=== PATIENT | male | born 1950 | race Two or more races ===

== ENCOUNTER 2016-05-11 04:21 | Inpatient (IN) | payer MEDICARE ==
[~2016-05-11] VITALS: Ht 177.8 cm; Wt 87.1 kg
--- NOTE | ~2016-05-11 | CATH ---
Cardiac Diagnostic + PCI Report Demographics Patient Name KAITLIN BARRAGAN Gender Male Date of 1950 Age 65 year(s) Patient Number [id number] Date of Study 05/11/2016 Visit Number [id number] Room Number Corporate ID Ht Wt 83.91 kg Accession Number [id number] Referring Primary Physician Physician Jordana Pierson Secondary Physician Physician Clau CRABTREE Diagnostic [facility] Assisting Physician Physician Clau CRABTREE Interventional [facility] Physician Rooter Operator Physician Clau CRABTREE Addendum Added visit number and facility name Findings and Conclusions Diagnostic Findings and Conclusion Inferior/posterior STEMI status post failed thrombolytics. Patient had worsening ST elevation in inferior leads and ongoing chest pain. Diagnostic Recommendations PCI of RCA distal 100% occluded. TA 0 flow. Mild non obstructive disease in LAD and Cx/OM system. Interventional Findings and Conclusion S\E\E\E\P PCI of RCA with [address] elevation on telemetry post PCI. No chest pain at the end of the procedure. Interventional Recommendations DAPT x 1 year. Patient will be observed overnight. Hydration and followup creatinine. Patient has been instructed to not lift anything more than 5 pounds for 1 week. Optimize LV systolic function. Aggressive risk factor management. Aggressive medical therapy for coronary artery disease. Continue aspirin. Statin. Beta Jeremías. Cardiac diet . Optimization of medical therapy as an outpatient. Referral to Cardiac Rehabilitation now and at discharge . Procedure Description Informed consent was obtained in the written and verbal form after the risks and benefits were explained. The patient had no further questions and agreed to proceed. The planned puncture-incision site(s) were shaved and prepped with ChloraPrep and draped in the usual sterile manner. Conscious sedation, supplemental oxygen, and pain control medications were delivered by a registered nurse under physician guidance. Surface ECG rhythm, blood pressure measurement, and pulse oximetry were monitored throughout the procedure. Arterial access. The access site was infiltrated with lidocaine. The vessel was entered with the Seldinger technique. A sheath was advanced into the vessel and used for catheter placement. Selective right coronary angiography. A catheter was advanced into the right coronary vessel ostium under fluoroscopic guidance. Contrast was injected by hand. Images were obtained in multiple projections. Stent Placement: A guiding catheter was used to intubate the vessel. A 0.14 wire was used to cross the lesion. Drug Eluting Stents x 3 were placed. Post placement angiograms were performed. Selective left coronary angiography. A catheter was advanced into the left coronary vessel ostium under Fluoroscopic guidance. Contrast was injected by hand. Images were obtained in multiple projections. Left heart catheterization. A catheter was advanced across the aortic valve to the left ventricle under fluoroscopic guidance. Resting hemodynamics were obtained. Arterial artery hemostasis was achieved. The patient was transferred to a regular nursing floor via cart accompanied by a nurse. The patient left the laboratory in stable condition. Diagnostic Cath Status: Emergency Interventional Cath Status: Emergency Procedure Procedure Type Diagnostic procedure:Angiography:, Coronary Angios w/[facility] PCI procedure:Drug Eluting Coronary Stent:, LAD, RCA Indications: Acute myocardioal infarction of inferoposterior wall. The procedure was explained in detail to the patient. Risks, complications and alternative treatments were reviewed. Written consent was obtained. Medications Reviewed with Patient prior to Procedure. Angiographic Findings Dominance: Right Cardiac Arteries and Lesion Findings LMCA: Lesion on LMCA: Proximal subsection.10% stenosis . LAD: Lesion on Prox LAD: Proximal subsection.10% stenosis . Lesion on Mid LAD: Mid subsection.30% stenosis . Lesion on Dist LAD: Distal subsection.20% stenosis . Lesion on 1st Diag: Proximal subsection.10% stenosis . LCx: Lesion on Prox CX: Proximal subsection.20% stenosis . Lesion on 1st Ob Sarah: Proximal subsection.20% stenosis . RCA: Lesion on Dist RCA: Distal subsection.100% stenosis 36 mm length reduced to 0%. Pre procedure TA 0 flow was noted. Post Procedure TA III flow was present. The guidewire cross was successful.The lesion was diagnosed as a high risk lesion.Culprit lesion. Treatment results:Interventional treatment was successful. Devices used - Emerge Balloon 2.5 x 8. 1 inflation(s) to a max pressure of: 8 tatum. - Runthrough NS .014 x 180. Number of passes: 3. - Promus Premier 3.0 x 20 Stent. 1 inflation(s) to a max pressure of: 12 tatum. - Promus Premier 3.5 x 20 Stent. 2 inflation(s) to a max pressure of: 12 tatum. Lesion on Prox RCA: Proximal subsection.75% stenosis 12 mm length reduced to 0%. Pre procedure TA III flow was noted. Post Procedure TA III flow was present. The guidewire cross was successful.The lesion was diagnosed as a low risk lesion.The lesion was eccentric.Culprit lesion. Comments:Focal Devices used - Promus Premier 4.0 x 12 Stent. 1 inflation(s) to a max pressure of: 12 tatum. Lesion on R PDA: Mid subsection.40% stenosis . Comments:Focal Coronary Tree Procedure Data Procedure Date Date: 05/11/2016Start: 04:52 AMEnd: 06:08 AM Entry Locations - Retrograde Percutaneous access was performed through the Right Radial artery (Primary location). A 6 Fr sheath was inserted. Hemostasis was successfully obtained using Mechanical Compression. Closure Comments: 13 mls in radial band. placed by Sara Acevedo. Procedure Medications Order and Administration + + +--------+ + !Time !Medication !Dosage !Route ! + + +--------+ + 05/11/2016 04:47 AM !Oxygen !2 l/min !NC ! + + +--------+ + 05/11/2016 04:55 AM !Versed !1 mg !I.V. ! + + +--------+ + !05/11/2016 04:59 AM !Heparin (ACC_3) ! ! ! + + +--------+ + !05/11/2016 05:00 AM !Angiomax (Bivalirudin) (ACC_5) !mg !I.V. bolus ! + + +--------+ + !05/11/2016 05:03 AM !Atropine !1 mg !I.V. ! + + +--------+ + !05/11/2016 05:03 AM !Nitroglycerin ! ! ! + + +--------+ + !05/11/2016 05:04 AM !Yordan-Synephrine (Phenylephrine) !100 mcg !I.V. ! + + +--------+ + !05/11/2016 05:11 AM !Fentanyl !50 mcg !I.V. ! + + +--------+ + !05/11/2016 05:23 AM !Nipride !100 mcg !I.C. ! + + +--------+ + !05/11/2016 05:23 AM !Yordan-Synephrine (Phenylephrine) !100 mcg !I.V. ! + + +--------+ + !05/11/2016 04:55 AM !Radial Verapamil !2.5 mg !I.A. ! + + +--------+ + !05/11/2016 05:35 AM !Brilinta (Ticagrelor) (ACC_20) !180 mg !P.O. ! + + +--------+ + !05/11/2016 05:44 AM !0.9% NaCl !100 ml !I.V. drip ! + + +--------+ + Devices Used - A6 Fr. JR4 Guide Catheterwas used for:RCA Intervention. - A5 Fr. BS JL 3.5 Diag. Catheterwas used for:Left coronary angiography.Unable to cannulate the vessel. - A6 Fr. JL 3 JJ Guide Catheterwas used for:Left coronary angiography.Unable to cannulate the vessel. - A6 Fr. EBU 3.5 Guide Catheterwas used for:Left coronary angiography. Contrast Material - Isovue 178171 ml Fluoroscopy Time: Diagnostic: 25:48 minutes. Total: 25:48 minutes. Fluoroscopy Dose: Diagnostic: 2867 mGy. Total: 2867 mGy. Estimated Blood Loss: 20 ml. Additional [facility] PCI Information PCI Indication:Immediate PCI for STEMI. Medical History Performed Procedures and Imaging Results - No [facility] stress or imaging studies were performed. Risk Factors The patient risk factors include:hypertension, last creatinine: 1.1 mg/dl, creatinine clearance: 79.46 ml/min and Current/Recent(w/in 1 year) tobacco use. Admission Data Arrival Date: 05/11/2016 Arrival Time: 12:00 AM Admit Source: Emergency department Insurance Payors: Medicare. Admission Medications + +------+------+ + + + + !Medication !Dosage!Times !Last !Last !Administered !Comments ! ! ! !Per !Delivery !Delivery ! ! ! ! ! !Day !Date !Time ! ! ! + +------+------+ + + + + !SELAM ! ! ! ! !Yes ! ! !Inhibitor ! ! ! ! ! ! ! !(any) ! ! ! ! ! ! ! + +------+------+ + + + + Clinical Evaluation Leading to Procedure - The patient's CAD presentation was assessed as: STEMI. - The patient recevied thrombolytic therapy as an urgent treatment for STEMI on 05/11/2016 02:00 AM. - The patient's anginal syndrome during the past two weeks was assessed as: Class IV according to the [employer] Cardiovascular Society Classification System (CCS). Hemodynamics Condition: Rest O2 Consumption: Heart Rate: 64 bpm Pressures (mmHg) +-----+ + !Site !Pressure ! +-----+ + !AO !121/69 (93) ! +-----+ + !LV !109/11 ,13 ! +-----+ + !LV !110/9 ,11 ! +-----+ + !AO !114/76 (95) ! +-----+ + !LV !112/10 ,11 ! +-----+ + Valve Gradients and Areas + +---------+---------+---------+ +---------+ + !Valve !Peak !Mean !Area !Index !Flow !Source ! + +---------+---------+---------+ +---------+ + !Aortic !0 ! ! ! ! ! ! + +---------+---------+---------+ +---------+ + !Aortic !0 ! ! ! ! ! ! + +---------+---------+---------+ +---------+ + Shunts Oxygen Values O2 Capacity 206.72 O2 Consumption 251.74 Signatures dtt: CLAU PIERSON dtd: 05/11/16 0452 Physician Self Edit
--- NOTE | ~2016-05-11 | DS ---
PATIENT'S NAME: LAUREL MADRIGAL [facility] AGE: 65 Y [address] ROOM: [id number] [place], [place] [id number] LOCATION: [facility] ADMIT DATE: 05/11/2016 Discharge Summary DISCHARGE DATE: 05/13/2016 FAMILY PHYSICIAN: Physician, Unknown ATTENDING PHYSICIAN: Clau Fragoso PRIMARY DISCHARGE DIAGNOSIS: Inferior and posterior ST-elevation myocardial infarction. SECONDARY DIAGNOSES: 1. Tobacco abuse with cessation counseling. 2. Hypertension. 3. Shock liver. 4. Ejection fraction of 50 to 55%. PROCEDURES PERFORMED: Selective coronary angiography and percutaneous intervention with a drug-eluting stent placement x3 to the right coronary artery. HOSPITAL COURSE: This is a 65-year-old male, admitted as an ST-elevation myocardial infarction, after failed thrombolytics at an outside hospital. Please see History and Physical for full details of admission. The patient was emergently taken to the catheterization suite where he underwent a selective coronary angiography and percutaneous intervention with three drug- eluting stents placement to his RCA through his right radial artery without complication. He was subsequently transferred to the intensive care unit for postprocedure monitoring of his vital signs, EKG, and procedure site. Overnight, he had complaints of burning epigastric chest pain which was relieved with a GI cocktail and he was subsequently started on Protonix. On 05/12/2016, the patient's radial site was remaining stable with no signs of complication. He was started on cardiac rehabilitation. Overnight, he had some slight hypotension and bradycardia, so his beta eri was changed and his SELAM inhibitor was discontinued. Due to the hypotension, he was not discharged on an SELAM inhibitor. On 05/13/2016, his cardiac enzymes and liver function tests which had initially elevated postprocedure had started to return to baseline and he was found to be in a stable condition to be discharged to home. LABORATORY DATA AND IMAGING STUDIES: Diagnostics: Cardiac enzyme trend showed an initial set of cardiac enzymes including a CPK, CK-MB, and troponin I of 122, 8.3, and 0.732 respectively. These enzymes peaked with a CPK, CK- MB, and troponin I of 3729, 401.6, and greater than 200 respectively. At the time of discharge, the CPK, CK-MB, and troponin I were 459, 7.4, and 26.5 respectively. Liver function upon admission showed an AST and an ALT of 26 and 33 respectively. These levels peaked at 329 and 79 respectively, and upon PATIENT'S NAME: LAUREL MADRIGAL [facility] AGE: 65 Y [address] ROOM: [id number] [place], [place] [id number] LOCATION: [facility] ADMIT DATE: 05/11/2016 Discharge Summary DISCHARGE DATE: 05/13/2016 FAMILY PHYSICIAN: Physician, Unknown ATTENDING PHYSICIAN: Clau Fragoso discharge, the AST and ALT were 136 and 62 respectively. The patient's GFR remained greater than 60 throughout his hospitalization. Lipid evaluation showed a total cholesterol of 147, triglycerides 126, HDL of 28, and LDL of 94. The patient underwent an echocardiogram on 05/11/2016, which showed a normal left and right ventricular size and systolic function. He had an estimated left ventricular ejection fraction of 50 to 55% and mild concentric left ventricular hypertrophy. There was noted to be moderate hypokinesis of the inferior wall and a grade 1 diastolic dysfunction. The left atrium was mildly dilated, but there were no significant valvular abnormalities and no evidence of pericardial effusion. DISCHARGE ORDERS: 1. The patient was discharged to home with a cardiac diet of low fat, low salt, and low cholesterol. 2. He is to follow normal post-catheterization restrictions including a 10- pound lifting restriction to his right arm. 3. He is to follow up with a hearing therapist of his choosing in [place] within 2 weeks. 4. He is also to undergo outpatient cardiac rehabilitation phase 2, once he establishes his cardiology care. DISCHARGE MEDICATIONS: 1. Aspirin 81 mg p.o. daily. 2. Lipitor 40 mg p.o. daily. 3. Protonix 40 mg p.o. daily. 4. Brilinta 90 mg p.o. twice daily. The patient was given samples of these medications to ensure proper medication compliance during his travels back to [place]. 5. Nitroglycerin 0.4 mg sublingual as needed for chest pain. 6. Metoprolol tartrate 6.25 mg p.o. twice daily. CONDITION ON DISCHARGE: The patient was discharged to home in stable condition. He is given his discharge instructions including diet and activity restrictions, and followup recommendations. These instructions are given to the patient as well as his and they both voice understanding. The patient plans to follow his instructions as prescribed. LUBA DEMARCO APRN FOR MD ALBARO MOHAN/reginaldo PATIENT'S NAME: LAUREL MADRIGAL [facility] AGE: 65 Y [address] ROOM: [place] [address] LOCATION: [facility] ADMIT DATE: 05/11/2016 Discharge Summary DISCHARGE DATE: 05/13/2016 FAMILY PHYSICIAN: Physician, Unknown ATTENDING PHYSICIAN: Clau Fragoso /[id number] d: 05/20/163 t: 05/28/16 1515, DISCHARGE SUMMARY
--- NOTE | ~2016-05-11 | ECHO ---
Transthoracic Echocardiography Report (TTE) Demographics Patient Name LAUREL MADRIGAL Date of Study 05/11/2016 Patient Number [id number] Visit Number [id number] Date of 1950 Room Number G6215 Gender Male Number Age 65 year(s) Referring Richmond Olguin Bb Shot Packer Lorna Putnam RDCS, Physician RVT Physician Interpreting Richmond Olguin [employer] Re[employer] Equipment Operator Physician MD Supervising Ordering Richmond Olguin MD/MLP Physician MD Nurse Stress Case Aide Conclusions Summary Normal LV/RV size and systolic function. The estimated left ventricular ejection fraction is 50 - 55%. Mild concentric left ventricular hypertrophy. There is moderate hypokinesis of the inferior wall. Diastolic assessment reveals Grade I diastolic dysfunction. The left atrium is mildly dilated. No significant valvular abnormalities. No evidence of pericardial effusion. Procedure Type of Study TTE procedure:2D Echocardiogram. Procedure Date Date: 05/11/2016 Start: 07:27 AM Study Location: Inpatient Portable Technical Quality: Adequate visualization Indications:Post PTCA. Appropriate Use Criteria: 9 Patient Status: Routine Rhythm: Within normal limits HR: 69 bpm BP: 146/88 mmHg M-Mode/2D Measurements LV Diastolic Dimension: 4.27 cm LV Systolic Dimension: 2.76 cm LV Septum Diastolic: 1.11 cm LV Septum Systolic: 4.17 cm LV PW Diastolic: 1.08 cm AO Root Dimension: 2.3 cm Cardiac Output: 4.49 l/min AV Cusp Separation: 1.8 cm RV Diastolic Dimension: 2.68 cm LA volume: 31 ml LVOT: 2.4 cm RV Base: 3.04 cm LVOT VTI: 14.4 cm RV Mid: 2.25 cm LV Stroke volume: 65.11 ml TAPSE: 1.59 cm TDI-S': 14 cm/s Doppler Measurements AV Peak Velocity: 1.05 m/s MV Peak E-Wave: 0.53 m/s AV Peak Gradient: 4.41 mmHg MV Peak A-Wave: 0.69 m/s AV Mean Gradient: 2 mmHg MV E/A Ratio: 0.77 LVOT Peak Velocity: 0.77 m/s MV Deceleration Time: 165 msec TR Velocity:2.74 m/s PV Peak Velocity: 0.62 m/s TR Gradient:30.03 mmHg PV Peak Gradient: 1.54 mmHg Estimated RAP:3 mmHg Estimated PASP: 33.03 mmHg Estimated RVSP: 33 mmHg A' Septal Velocity: 0.15 m/s E' Septal Velocity: 0.05 m/s A' Lateral Velocity: 0.13 m/s E' Lateral Velocity: 0.07 m/s MV E/E' Ratio: 8.5 Findings Left Ventricle The estimated left ventricular ejection fraction is 50%. Mild concentric left ventricular hypertrophy. Diastolic assessment reveals Grade I diastolic dysfunction. Right Ventricle Normal right ventricle structure and function. Left Atrium The left atrium is mildly dilated. Right Atrium Normal right atrial size. Mitral Valve Mild mitral regurgitation by color Doppler. Aortic Valve The aortic valve is mildly sclerotic. Tricuspid Valve Mild tricuspid regurgitation by color Doppler. Pulmonic Valve Mild pulmonic valve regurgitation by color Doppler. Pericardial Effusion No evidence of pericardial effusion. Miscellaneous Suboptimal subcostal window to evaluate the IVC and interatrial septum. Pleural Effusion No evidence of pleural effusion. Signature dtt: DESIRAE PIERSON dtd: 05/11/16 0727 Physician Self Edit
--- NOTE | ~2016-05-11 | HP ---
PATIENT'S NAME: LAUREL MADRIGAL [facility] AGE: 65 Y [address] ROOM: [id number] [place], [place] [address] LOCATION: GICU ADMIT DATE: 05/11/2016 History & Physical DISCHARGE DATE: FAMILY PHYSICIAN: PHYSICIAN, UNKNOWN ATTENDING PHYSICIAN: DESIRAE PIERSON DATE OF SERVICE: CHIEF COMPLAINT: Chest pain. REQUESTING PROVIDER: Dr. Yoav Kay from [facility] in [place] requested transfer. HISTORY OF PRESENTING ILLNESS: The patient is a very pleasant 65-year-old, male from [place], [place] who is a cross country truck driver and was visiting [place] yesterday. He spent Thursday05/10/2016 feeling fairly active in town. However, he reported having severe chest discomfort in the mid sternum radiating to his left pectoral region as well as the jaw after midnight on 05/11/2016, it was about 8 to 10 on pain scale and associated with shortness of breath, heart burn, and sweatiness. He contacted EMS and he got oxygen and nitroglycerin x2 as well as morphine 2 mg IV en route to the [facility]. His chest pain decreased to 5/10 once he arrived there. Once he was there, ECG showed significant ST elevation in the inferior leads and ST depressions in the leads V1 and V2 suggestive of inferior posterior involvement as well as significant ST depressions in lead I, aVL, suggestive of a large dominant RCA occlusion. There was no aircrew available to get patient to [facility] and ambulance drive would take about 1 hour and 45 minutes and transfer crew trying to figure out the closest ambulance service that can get the patient from [place] to [facility] in [place]. At this time, it was sure that there would be at least about a [address] time by the time he gets here, given no contraindications to thrombolytics, I did suggest they give him tenecteplase 50 mg IV that was given at 1:55 a.m. When he arrived to the ER, there he got morphine at 1:34 2 mg and about 2:04 he got Lipitor 80 mg as well as heparin drip was started. He was hemodynamically fairly stable, and sinus michele in the 50s. He continued to have persistent chest pain. I was called by the ambulance crew about 20 minutes out from [place] that he continued to have significant chest pain about 6 to 7 on pain scale along with persistent ST elevations on their portable monitor. At that time, we activated the mechanical shop laborer while he was en route and we had him come to the emergency room while the cath crew was getting the equipment ready for patient to get emergent cath, possible PCI of the RCA. In the emergency room, he had chest pain about 6 on pain scale. He was in mild distress. Informed consent was obtained for PATIENT'S NAME: LAUREL MADRIGAL [facility] AGE: 65 Y [address] ROOM: [id number] [place], [place] [address] LOCATION: [facility] ADMIT DATE: 05/11/2016 History & Physical DISCHARGE DATE: FAMILY PHYSICIAN: PHYSICIAN, UNKNOWN ATTENDING PHYSICIAN: DESIRAE PIERSON cardiac cath, given the STEMI, the patient was agreeable. Risks and benefits discussed with patient and he agreed to proceed with plan. Labs reviewed from [place]. His CBC was fairly normal. No significant pathology. Creatinine was 1 here and his INR was 1, troponin was 0.4, CK-MB 4.19, creatine kinase was 106. The patient did not have any fever, chills, stroke-like symptoms. No cough or sputum production. No other acute complaints. He has been in his usual state of health. REVIEW OF SYSTEMS: A 10-point review of systems discussed with patient. Pertinent positives and negatives mentioned in the history of presenting illness. PAST MEDICAL HISTORY: Hypertension. PAST SURGICAL HISTORY: None. SOCIAL HISTORY: The patient smokes one and half pack per day. No illicit drug abuse or alcohol abuse. FAMILY HISTORY: No premature family history of coronary artery disease or sudden cardiac . PHYSICAL EXAMINATION: VITAL SIGNS: Blood pressure is 140/80, heart rate in the 50s, afebrile, respirations 18. GENERAL: The patient is alert and oriented to time, place, and person, in apparent mild distress. NECK: Supple. EYES: Sclerae white. No xanthelasma. NECK: No JVD. HEART: S1 and S2. Regular rate and rhythm. No murmurs, gallops, or rubs. ABDOMEN: Soft. Bowel sounds positive. LUNGS: Clear to auscultation bilaterally. EXTREMITIES: No significant lower extremity edema. Pulse 2+. MUSCULOSKELETAL: Joints without any swelling. NEURO: Grossly intact. Able to move all extremities against gravity. He follows commands and his speech is normal. LABORATORY DATA: PATIENT'S NAME: LAUREL MADRIGAL [facility] AGE: 65 Y [address] ROOM: [id number] [place], [place] [address] LOCATION: [facility] ADMIT DATE: 05/11/2016 History & Physical DISCHARGE DATE: FAMILY PHYSICIAN: PHYSICIAN, UNKNOWN ATTENDING PHYSICIAN: DESIRAE PIERSON At [facility]: His sodium 140, potassium 3.6, chloride 106, CO2 23, glucose 117, BUN 11, creatinine 1.1, alkaline phosphatase 109, AST 23, ALT 33, and GFR greater than 60. Magnesium 2.3. CPK 122, CK-MB 8.3, troponin 0.73. WBC 12.6, H and H 15.2 and 43.3, and platelets are 245. Chest x-ray at [place], no acute abnormalities per report. EKG, sinus bradycardia with a massive ST elevations in the inferior leads with ST depressions in leads V1 and V2 as well as I and aVL. IMPRESSION AND PLAN: 1. Inferior/posterior ST-segment elevation myocardial infarction status post failed thrombolytics with tenecteplase. He did receive aspirin, heparin drip, and Lipitor at [facility] and was transferred emergently to our emergency room and since he is continuing to have chest discomfort with significant ST elevations and he failed thrombolytics, at this time, mechanical shop laborer was activated emergently while patient was en route given the findings. Informed consent obtained. The patient agreeable to proceed with cardiac cath, possible PCI. He is not allergic to contrast. Good candidate for DAPT. 2. Hypertension. We will get his home medications and resume them. 3. Tobacco abuse. Counseled extensively to quit smoking. We will get an echocardiogram and a fasting lipid profile and adjust medications and monitor him in the ICU for a day and hopefully discharge him in 48 hours, if everything continues to progress well. Thank you very much for allowing us to participate in the care of Mr. Laurel Madrigal. DESIRAE PIERSON MD AT/modl /[id number] CC: Yoav Kay MD D: [id number] T: [id number] HISTORY & PHYSICAL
--- NOTE | ~2016-05-11 | ER ---
PATIENT'S NAME: LAUREL MADRIGAL [facility] AGE: 65 Y [address] ROOM: [place] [address] LOCATION: [facility] ADMIT DATE: 05/11/2016 ER/Outpatient Report DISCHARGE DATE: FAMILY PHYSICIAN: PHYSICIAN, UNKNOWN ATTENDING PHYSICIAN: DESIRAE PIERSON CHIEF COMPLAINT: Chest pain. HISTORY OF PRESENT ILLNESS: The patient arrives by ambulance from [place]. He was stopped in the emergency department as a STEMI for further evaluation and his laboratory engineer was not ready. The patient has had chest pain for the last several hours. It has improved. It is currently 3/10 with occasional spasms to 10/10. He is on a nitro drip. He has received tenecteplase and heparin. His blood pressures are being maintained. He is overall doing well considering the current presentation. He is a smoker with no known other medical issues other than hypertension. PAST MEDICAL HISTORY: Documented on the medical record and reviewed by me. SOCIAL HISTORY: Documented on the medical record and reviewed by me. MEDICATIONS: Documented on the medical record and reviewed by me. ALLERGIES: DOCUMENTED ON THE MEDICAL RECORD AND REVIEWED BY ME. REVIEW OF SYSTEMS: All systems reviewed and negative except as noted in the HPI. PHYSICAL EXAMINATION: VITAL SIGNS: Blood pressure 146/87, pulse 63, respiratory rate 16, temperature 97.8, SpO2 is 99% on 2 L nasal cannula. GCS is 15. GENERAL: Age-appropriate male, in no obvious pain or distress, except for intermittent winces. NEUROLOGIC: Awake and alert, appropriate, actually laughing. CHEST: Heart is regular rate and rhythm with no obvious murmurs. LUNGS: Grossly clear to auscultation bilateral with no rhonchi, wheezes, or rales. ABDOMEN: Benign. EXTREMITIES: Normal to inspection and palpation. No appreciable edema. SKIN: Warm, dry, and intact. Not diaphoretic. PATIENT'S NAME: LAUREL MADRIGAL [facility] AGE: 65 Y [address] ROOM: [place] [address] LOCATION: [facility] ADMIT DATE: 05/11/2016 ER/Outpatient Report DISCHARGE DATE: FAMILY PHYSICIAN: PHYSICIAN, UNKNOWN ATTENDING PHYSICIAN: DESIRAE PIERSON LABORATORY DATA AND X-RAYS: Chest x-ray grossly unremarkable per my read. EKG is consistent with STEMI. IMPRESSION: ST-elevation myocardial infarction status post lysis. EMERGENCY DEPARTMENT COURSE: The patient was seen and evaluated as noted above. Dr. Metzger at bedside. The patient will be taken to the laboratory engineer for further evaluation and treatment at this time. Delay to cathlab was due to response time coordination with EMS. All questions were answered and the patient was taken to the laboratory engineer with minimal delay as soon as they were ready. MD NELSON BLANTON/reginaldo /[id number] d: 05/12/16 0521 t: 05/22/16 0939, OUTPATIENT REPORT
[2016-05-11 04:43] LABS: BASOPHIL # 0.1 K/uL (0.0-0.2); BASOPHIL % 0.6 %; EOSINOPHIL # 0.1 K/uL (0.0-0.5); EOSINOPHIL % 0.6 %; HEMATOCRIT 43.3 % (37.0-53.0); HEMOGLOBIN 15.2 g/dL (11.0-16.0); IMMATURE GRANULOCYTE % 0.3 %; LYMPHOCYTE # 1.9 K/uL (0.8-4.0); LYMPHOCYTE % 15.4 %; MCH 30.5 pg (27.0-34.0); MCHC 35.1 gm/dL (32.0-36.5); MCV 86.8 fl (83.0-98.0); MONOCYTE # 0.7 K/uL (0.0-1.0); MONOCYTE % 5.3 %; MPV 9.8 fl (9.4-12.4); NEUTROPHIL # (ANC) 9.8 K/uL (1.4-9.0); NEUTROPHIL % 77.8 %; NRBC % 0 /100WBC (0-0.00); PLATELET COUNT 245 K/uL (150-450); RBC 4.99 M/uL (3.50-5.50); RDW-CV 13.4 % (11.9-14.6); WBC 12.6 K/uL (4.0-11.0)
[2016-05-11 04:52] LABS: PROTIME 10.6 SECONDS (9.6-11.1); PTT 40 SECONDS (25-32)
[2016-05-11 05:00] LABS: ALBUMIN 3.8 gm/dL (3.5-5.0); ALK PHOS 109 IU/L (33-138); ALT 33 IU/L (12-78); ANION GAP 14.6 (10.0-19.0); AST 26 IU/L (10-40); BLOOD UREA NITROGEN 11 mg/dL (6-24); CALCIUM 8.8 mg/dL (8.5-10.5); CHLORIDE 106 mMol/L (96-110); CO2 23 mMol/L (22-32); CPK 122 IU/L (35-332); CREATININE 1.1 mg/dL (0.6-1.3); ESTIMATED GFR (MDRD EQUATION) > 60; MAGNESIUM 2.3 mg/dL (1.3-2.6); POTASSIUM 3.6 mMol/L (3.7-5.1); SODIUM 140 mMol/L (135-145); TOTAL BILIRUBIN 0.7 mg/dL (0.0-1.5)
[2016-05-11] MEDS ORDERED: ZESTRIL40 MG PO (07:40)
[2016-05-11] MEDS ORDERED: HYDRODIURIL25 MG PO (07:42)
[2016-05-11 10:30] LABS: CPK 3729 IU/L (35-332)
[2016-05-11 16:46] LABS: CPK 2717 IU/L (35-332)
--- NOTE | 2016-05-11 16:47 | NUR ---
Significant Event:Pt A&O x 3, remains in SR - SB with ST elevation noted and reported post heart cath with 3 stents to the RCA, pt remains on 2L NC, chest pain 1-2/10 intermittently throughout shift, Dr Metzger notified, EKGs done, nitro SL given x 2 for chest pain, pt's appetite decreased but has ate some of meals, voids per urinal, PVCs noted as well Follow up: Continue to monitor chest pain closely
--- NOTE | 2016-05-12 04:11 | NUR ---
PT SB-SR ON MONITOR THIS SHIFT. SBP TRENDING DOWN FROM 120S WHEN THIS RN ARRIVED TO 80S AT 0300; ASYMPTOMATIC, CATH SITE WITHOUT OOZING, HEMATOMA, OR BLEEDING, NS STARTED AND DR. BAR CALLED. ORDER TO CONTINUE WITH BOLUS AND CONTINUE TO MONITOR. BP REMAINS BOARDERLINE AT THIS TIME WITH SBP HIGH 80S-MID 90S. REMAINS ON 2LNC FOR COMFORT. NO EPISODES OF CP, N/V, BACK/JAW/ARM PAIN, INDIGESTION, OR OVERALL ILL-FEELING. PT STATES, "I ACTUALLY FEEL PRETTY GOOD NOW." NO BM THIS SHIFT, VOID X2 PER URINAL, REPOSITIONS INDEPENDENTLY. REGINA ESCOBAR, RN
[2016-05-12 05:35] LABS: ALBUMIN 3.1 gm/dL (3.5-5.0); ALK PHOS 90 IU/L (33-138); ALT 79 IU/L (12-78); ANION GAP 11.4 (10.0-19.0); AST 329 IU/L (10-40); BLOOD UREA NITROGEN 12 mg/dL (6-24); CALCIUM 8.1 mg/dL (8.5-10.5); CHLORIDE 107 mMol/L (96-110); CO2 28 mMol/L (22-32); CREATININE 1.2 mg/dL (0.6-1.3); ESTIMATED GFR (MDRD EQUATION) > 60; POTASSIUM 4.4 mMol/L (3.7-5.1); SODIUM 142 mMol/L (135-145); TOTAL PROTEIN 5.9 g/dL (6.0-8.4)
[2016-05-12 05:38] LABS: TOTAL BILIRUBIN 0.9 mg/dL (0.0-1.5)
--- NOTE | 2016-05-12 14:52 | NUR ---
Introduced self and role of care management to patient and his family. He lives with his in [facility]. He states that he is able to do all his own ADL's. He is currently an over the road truck driver salesperson. He states that when he is home his family can assist if needed. He is planning on going home on discharge. He did state that he needs to drive his truck to [place] to deliver his load. He states that his boys can unstrap the load and then he will just drive the truck home. He states that he when he gets home he will be able to take as much time off as the dr feels he needs to. He does not have a prescription plan. I did leave a note for the dr to order as many generic meds as possible. He denies any needs at this time. Will continue to follow.
--- NOTE | 2016-05-13 05:13 | NUR ---
Significant Event: Pt alert and oriented x3. Up ad luca in room. Denies chest pain or any other discomfort tonight. Portable telemetry on. RA sats mid 90s. Voids per urinal and toilet in room. Follow up: Plan to DC home today.
[2016-05-13 11:25] LABS: BASOPHIL % 0.5 %; EOSINOPHIL # 0.1 K/uL (0.0-0.5); EOSINOPHIL % 1.4 %; HEMATOCRIT 39.6 % (37.0-53.0); HEMOGLOBIN 13.2 g/dL (11.0-16.0); IMMATURE GRANULOCYTE % 0.1 %; LYMPHOCYTE # 1.7 K/uL (0.8-4.0); LYMPHOCYTE % 22.4 %; MCH 30.3 pg (27.0-34.0); MCHC 33.3 gm/dL (32.0-36.5); MONOCYTE # 0.6 K/uL (0.0-1.0); MONOCYTE % 7.1 %; MPV 9.9 fl (9.4-12.4); NEUTROPHIL # (ANC) 5.3 K/uL (1.4-9.0); NEUTROPHIL % 68.5 %; NRBC % 0 /100WBC (0-0.00); PLATELET COUNT 174 K/uL (150-450); RBC 4.35 M/uL (3.50-5.50); RDW-CV 13.4 % (11.9-14.6); WBC 7.7 K/uL (4.0-11.0)
[2016-05-13 11:43] LABS: ALBUMIN 3.4 gm/dL (3.5-5.0); ALK PHOS 94 IU/L (33-138); ALT 62 IU/L (12-78); ANION GAP 10.1 (10.0-19.0); AST 136 IU/L (10-40); BLOOD UREA NITROGEN 15 mg/dL (6-24); CALCIUM 8.3 mg/dL (8.5-10.5); CHLORIDE 107 mMol/L (96-110); CO2 27 mMol/L (22-32); CPK 459 IU/L (35-332); CREATININE 1.2 mg/dL (0.6-1.3); ESTIMATED GFR (MDRD EQUATION) > 60; POTASSIUM 4.1 mMol/L (3.7-5.1); SODIUM 140 mMol/L (135-145); TOTAL BILIRUBIN 0.9 mg/dL (0.0-1.5); TOTAL PROTEIN 6.6 g/dL (6.0-8.4)
[2016-05-13] MEDS ORDERED: ASPIRIN (CHILDR81 MG PO (12:41)
[2016-05-13] MEDS ORDERED: LIPITOR40 MG PO (12:53)
[2016-05-13] MEDS ORDERED: PROTONIX40 MG PO (12:54)
[2016-05-13] MEDS ORDERED: BRILINTA90 MG PO (12:56)
[2016-05-13] MEDS ORDERED: NITROSTAT0.4 MG SL (12:57)
[2016-05-13] MEDS ORDERED: LOPRESSOR25 MG PO (12:59)
--- NOTE | 2016-05-13 15:42 | NUR ---
Patient discharged from hospital to home. Ambulated to son's personal vehicle. VSS. No complaints of chest pain or other discomfort.
== END 2016-05-13 13:15 | disposition disaster alternative care site (69) | DRG 246 ==
LOC: GMED 04:21 → GICU 04:43
PROVIDERS: Emergency Medicine; Internal Medicine Interventional Cardiology; ADMIT Internal Medicine Interventional Cardiology
PROC: 027036Z Dilation of Coronary Artery, One Artery with Three Drug-eluting Intraluminal Devices, Percutaneous Approach (ICD-10-PCS; principal; 2016-05-11)
PROC: B2111ZZ Fluoroscopy of Multiple Coronary Arteries using Low Osmolar Contrast (ICD-10-PCS; principal; 2016-05-11)
DX: I21.11 ST elevation (STEMI) myocardial infarction involving right coronary artery (principal); K72.00 Acute and subacute hepatic failure without coma; I95.9 Hypotension, unspecified; I10 Essential (primary) hypertension; F17.200 Nicotine dependence, unspecified, uncomplicated; R00.1 Bradycardia, unspecified
CPT/HCPCS: C1725; C1769; C1874; C1887; C9606; J0282; J0461; J0583; J1644; J2250; J2270; J2370; J2405; J3010; J7030; J7060

== ENCOUNTER → 2016-05-11 | Outpatient (CLI) | payer MEDICARE ==
[~2016-05-11] MED LIST: ASPIRIN (CHILDR81 MG PO; BRILINTA90 MG PO; HYDRODIURIL25 MG PO; LIPITOR40 MG PO; LOPRESSOR25 MG PO; NITROSTAT0.4 MG SL; PROTONIX40 MG PO; ZESTRIL40 MG PO
== END | disposition disaster alternative care site (69) ==
LOC: GAMB 02:45
DX: Z00.00 Encounter for general adult medical examination without abnormal findings (principal)
CPT/HCPCS: A0422; A0425; A0434